=== PATIENT | female | born 1995 | race Caucasian/White ===

== ENCOUNTER → 2018-06-26 14:45 | Outpatient (CLI) | payer MEDICAID ==
[2018-06-26 16:11] LABS: BASOPHILS 0.3 % (0-2); HEMATOCRIT 33.2 % (36.0-48.0); HEMOGLOBIN 11.4 g/dL (12-16); IMMATURE GRANULOCYTES 0.3 % (0-5); LYMPHOCYTES 22.9 % (15-50); MCH 29.1 pg (26.0-34.0); MCHC 34.3 g/dL (31.0-37.0); MCV 84.7 fL (80.0-100.0); MEAN PLATELET VOLUME 9.5 fL (7.4-10.4); MONOCYTES 5.9 % (2-11); NEUTROPHILS 69.6 % (40-80); PLATELET COUNT 240 10x3/uL (130-400); RBC 3.92 10x6/uL (4.00-5.40); RDW 13.7 % (11.5-14.5); WBC 7.7 10x3/uL (4.8-10.8)
[2018-06-26 16:16] LABS: APPEARANCE CLEAR (CLEAR); BILIRUBIN NEGATIVE (NEGATIVE); COLOR STRAW (YELLOW); GLUCOSE 50 mg/dL (NEGATIVE); KETONE NEGATIVE (NEGATIVE); NITRITE NEGATIVE (NEGATIVE); PROTEIN NEGATIVE (NEGATIVE); SPECIFIC GRAVITY 1.005 (1.005-1.020); UROBILINOGEN NORMAL (NORMAL)
[2018-06-26 16:19] LABS: CREATININE - URINE 9.7 mg/dL (30-125)
[2018-06-26 16:21] LABS: PRO/CRE RATIO URINE 0.5 mg/g; PROTEIN - URINE 4.5 mg/dL (0.0-11.9)
[2018-06-26 16:23] LABS: UDS - AMPHET NEGATIVE QUAL (NEGATIVE); UDS - BARB NEGATIVE QUAL (NEGATIVE); UDS - BENZO NEGATIVE QUAL (NEGATIVE); UDS - COCAINE NEGATIVE QUAL (NEGATIVE); UDS - OPIATE NEGATIVE QUAL (NEGATIVE); UDS - PCP NEGATIVE QUAL (NEGATIVE); UDS - THC POSITIVE QUAL (NEGATIVE)
[2018-06-26 16:31] LABS: ALBUMIN 2.4 g/dL (3.4-5.0); ALKALINE PHOSPHATASE 295 U/L (46-116); ALT (SGPT) 15 U/L (10-68); BILIRUBIN - TOTAL 0.11 mg/dL (0.2-1.3); CALC OSMOLALITY 275 mosm/kg (275-300); CALCIUM 8.1 mg/dL (8.5-10.1); CARBON DIOXIDE 25.5 mmol/L (21.0-32.0); CHLORIDE - SERUM 106 mmol/L (98-107); CREATININE - SERUM 0.5 mg/dL (0.6-1.3); GLUCOSE 100 mg/dL (74-106); LDH 113 U/L (81-234); SODIUM 140 mmol/L (136-145); UREA NITROGEN 4 mg/dL (7-18); URIC ACID 3.8 mg/dL (2.6-7.2); eGFR NON AFRICAN AMERICAN > 90 mL/min (90-120)
[2018-06-26 16:34] LABS: HIV 1 & 2- RAPID SCREEN NEGATIVE (NEGATIVE)
== END | disposition home or self-care (01) ==
LOC: D.LDO 14:45
PROVIDERS: Obstetrics & Gynecology
DX: O26.899 Other specified pregnancy related conditions, unspecified trimester (principal); Z3A.00 Weeks of gestation of pregnancy not specified

== ENCOUNTER → 2018-07-03 19:21 | Outpatient (CLI) | payer MEDICAID | END | disposition home or self-care (01) | LOC: D.LDO 19:21 | PROVIDERS: ATTEND Obstetrics & Gynecology | DX: O36.5930 Maternal care for other known or suspected poor fetal growth, third trimester, not applicable or unspecified (principal); Z3A.36 36 weeks gestation of pregnancy ==

== ENCOUNTER 2018-07-19 00:47 | Inpatient (IN) | payer MEDICAID ==
[2018-07-19 01:49] LABS: APPEARANCE CLEAR (CLEAR); BACTERIA NONE SEEN /hpf (NONE SEEN); BILIRUBIN NEGATIVE (NEGATIVE); COLOR PINK (YELLOW); EPITHELIAL CELLS RARE /hpf (0-5); GLUCOSE NEGATIVE (NEGATIVE); HEMATOCRIT 35.5 % (36.0-48.0); HEMOGLOBIN 12.2 g/dL (12-16); KETONE NEGATIVE (NEGATIVE); MCH 28.9 pg (26.0-34.0); MCHC 34.4 g/dL (31.0-37.0); MCV 84.1 fL (80.0-100.0); MEAN PLATELET VOLUME 9.5 fL (7.4-10.4); NITRITE NEGATIVE (NEGATIVE); PROTEIN NEGATIVE (NEGATIVE); RBC 4.22 10x6/uL (4.00-5.40); RDW 13.9 % (11.5-14.5); RED CELLS - URINE >50 /hpf (0-5); SPECIFIC GRAVITY 1.015 (1.005-1.020); UROBILINOGEN NORMAL (NORMAL); WBC 9.8 10x3/uL (4.8-10.8)
[2018-07-19 01:52] LABS: UDS - AMPHET NEGATIVE QUAL (NEGATIVE); UDS - BARB NEGATIVE QUAL (NEGATIVE); UDS - BENZO NEGATIVE QUAL (NEGATIVE); UDS - COCAINE NEGATIVE QUAL (NEGATIVE); UDS - OPIATE NEGATIVE QUAL (NEGATIVE); UDS - PCP NEGATIVE QUAL (NEGATIVE); UDS - THC POSITIVE QUAL (NEGATIVE)
[2018-07-19 03:49] VITALS: BP 129/79; BMI 25.2
[2018-07-19 07:27] VITALS: BP 99/51
--- NOTE | 2018-07-19 07:35 | NUR ---
ENTERED ROOM FOR ASSESSMENT. PT ASLEEP. AWAKENED WHEN ASK QUESTIONS. DENIES PAIN OR DISCOMFORT. REG BREAKFAST BROUGHT TO ROOM. FUNDUS U2/FIRM. SCANT LOCHIA NOTED ON PAD. NO REQUESTS.
--- NOTE | 2018-07-19 08:18 | NUR ---
PT STATES IS CRAMPING WITH BREAST FEEDING AT THIS TIME.
--- NOTE | 2018-07-19 08:46 | NUR ---
UP TO BATHROOM TO VOID. VOIDED AND MARINA CARE DONE. PADS CHANGED. AMBULATORY TO ROOM 1278 WITH INFANT. TOLERATED WELL
--- NOTE | 2018-07-19 09:56 | NUR ---
UP AND ABOUT IN ROOM. DENIES NEEDS.
--- NOTE | 2018-07-19 10:18 | NUR ---
REQUESTING HALF AND HALF FOR COFFEE. LUNCH MENU COMPLETE.
--- NOTE | 2018-07-19 10:35 | NUR ---
PT REQUESTING TO GO SMOKE CIGARETTE- EXPLAINED THAT THIS IS A NO SMOKING CAMPUS.
--- NOTE | 2018-07-19 10:44 | NUR ---
Arpita Valentine 07/19/18 S: Patient states this is her 3rd baby. Patient denies wanting help with latching . She has been and denies questions or help with . States baby is sleeping at this time and she will try feeding shortly. Patient verbally agrees to contact nursery staff as needed for help with . O: Patient sitting up in bed holding sleeping . Congratulated on delivery and asked how can I help with . Asked if she needs any help with latching, sore nipples, or positions? Praised for and informed does take time, practice, and patience in the beginning. It is normal for to want to nurse every 2 hours in the day and 3-4 hours at night. Explained breastmilk composition, benefits of skin to skin, how to correctly hold infant for feeding by turning tummy to tummy, directly in front of the breast, nose opposite of nipple, and allow to self latch. Infant may not latch immediately and this is normal also. Asked if any pain when latching infant? Please contact nursery staff as needed for help with . A: Patient appears confident with due to no questions or concerns about . P: Continue to promote during hospital visit. Honorio Ellison, CLC
--- NOTE | 2018-07-19 11:37 | OP ---
PATIENT NAME: JAMEE RODGERS MEDICAL RECORD: [id number] :94 LOCATION:[id number] ADMISSION DATE:07/19/18 SURGEON: LUIS MARISCAL MD DATE OF OPERATION: 07/19/2018 Delivery Note PREDELIVERY DIAGNOSES: 1. Growth restriction at term. 2. Noncompliance. 3. Active labor. POSTDELIVERY DIAGNOSES: 1. Growth restriction at term. 2. Noncompliance. 3. Mother delivered at term. PROCEDURE: Vaginal delivery. ATTENDING: Luis Mariscal MD ANESTHETIC: None. FINDINGS: A viable male infant in PARMINDER presentation, nuchal cord times 1, Apgars are 9 and 9 with a weight of 2405 grams. Placenta spontaneous and intact. No laceration. ESTIMATED BLOOD LOSS: 300 cc. DISPOSITION: Mother and infant recovered in the room. PATHOLOGY: Placenta. TRANSINT:[id number] Voice Confirmation ID: [id number] DOCUMENT ID: [id number] LUIS MARISCAL MD at 1137 CC: [id number] DICTATION DATE: 07/19/18323 MARKETING FINANCE MANAGER: 07/19/18 0428 ADM IN [facility] [address] [place] [address]
--- NOTE | 2018-07-19 13:15 | NUR ---
PT CALLS OUT REQUESTING PAIN MED DUE TO INCREASE CRAMPING. EMAR CHECKED, THIS RN TO ROOM TO EXPLAIN THAT MED COULD NOT BE GIVEN AGAIN UNTIL 2:00PM. SHE STATES HER UNDERSTANDING AND DENIES ANY OTHER NEEDS.
--- NOTE | 2018-07-19 13:44 | NUR ---
pt ambulates off unit with visitors.
--- NOTE | 2018-07-19 14:06 | NUR ---
PT AMB BACK TO ROOM BY HERSELF
--- NOTE | 2018-07-19 14:15 | NUR ---
Call light answered, pt rates cramping at 5/10 and request pain med. Tordal given po as scanned to emar. she talking on cell phone at this time
--- NOTE | 2018-07-19 14:19 | NUR ---
pt amb off unit, she is alone at this time. Infant remains in nursery.
[2018-07-19 16:06] VITALS: BP 117/70
--- NOTE | 2018-07-19 16:10 | NUR ---
SOMNOLENT. ROLLS OVER WHEN TOUCHED, ASSISTED TO ROLL AND REQUESTED TO HOLD THERMOMETER UNDER TONGUE, THEN IMMEDIATELY FALLS BACK TO SLEEP. WAS PRONE. NOW LYING ON LEFT SIDE . NO SIGNS OF DISTRESS. RESP REG AND EVEN. SKIN WARM DRY AND PINK
--- NOTE | 2018-07-19 16:15 | NUR ---
GETS UP TO GO TO THE RESTROOM, REQUESTING STAY IN ROOM. INFORMED THAT SINCE SHE IS BY HERSELF AND SO DIFFICULT TO WAKEN, THAT IT IS NOT BE SAFE TO LEAVE INFANT IN ROOM AND THAT WHEN SHE IS MORE ALERT, TO CALL NURSE. INFANT RETURNED TO [facility] IN [facility]CR[facility].
--- NOTE | 2018-07-19 17:15 | NUR ---
INFANT. SITTING CROSS LEGGED IN BED. 3 VISITORS AT BEDSIDE. PROPER LATCH/SUCK/SWALLOW AND POSITIONING NOTED WHILE MOTHER . ALERT AND ORIENTED. SKIN WARM DRY AND PINK.
--- NOTE | 2018-07-19 17:30 | NUR ---
REMAINS STABLE WITH NO SIGNS OF DISTRESS. BONDING WITH .
--- NOTE | 2018-07-19 17:45 | NUR ---
VISITING WITH VISITORS SHE BREASTFEEDS INFANT. REMAINS STABLE WITH NO SIGNS OF DISTRESS. ALERT AND ORIENTED. SKIN WARM DRY AND PINK
[2018-07-19 19:13] VITALS: BP 114/70
--- NOTE | 2018-07-19 19:13 | NUR ---
PT REC'D UP AT THE BEDSIDE AT THIS TIME. FAMILY VISITING. SALINE LOCKS X2 TO RT AND LEFT FOREARM. SITE CLEAR. LUNGS CLEAR. BS+. FUNDUS FIRM AND MIDLINE WITH SCANT LOCHIA NOTED. FUNDUS AT U/3. PT VOIDING AND TOLERATING REGULAR DIET AT THIS TIME. STATES THAT PAIN IS A 2. PT WITHOUT NICOTINS PATCHA AT THIS TIME. STATEST THAT IT WAS PLACED TO THE RT UPPER ARM AND IT CAME OFF. SHE STATES "THEY NEVER STICK TO ME. THAT'S WHY I BEEN GOING TO SMOKE.' VSS. NO ACUTE DISTRESS NOTED. CALL LIGHT IN PT REACH. Alva REYES RN
--- NOTE | 2018-07-19 20:07 | NUR ---
PT GIVEN SCHEDULED DOSE OF TORADOL FOR PAIN LEVEL OF 4 FOR CRAMOING. WILL CONTINUE TO MONITOR. PT GIVEN WATER AND MILK AT THIS TIME. Alva REYES RN
--- NOTE | 2018-07-19 20:31 | NUR ---
PT OFF THE UNIT AT THIS TIME. Alva REYES RN
--- NOTE | 2018-07-19 21:30 | NUR ---
PT REMAINS OFF THE UNIT AT THIS TIME. Alva REYES RN
--- NOTE | 2018-07-19 21:55 | NUR ---
PT AND S/O RETURNED TO UNIT AT THIS TIME. NO DISTRESS NOTED. Alva REYES RN
--- NOTE | 2018-07-19 22:50 | NUR ---
PT WITH FAMILY AT THE BEDSIDE. NO NEEDS VERBALIZED AT THIS TIME. L PLEV, RN
--- NOTE | 2018-07-20 00:35 | NUR ---
PT REC'D IN BED WITH ASLEEP. DENIES NEEDS AT THIS TIME. RETURNED TO NURSERY FOR FEEDING AND DIAPER CHANGE. PT VERBALIZES NO OTHER NEEDS AT THIS TIME. CALL LIGHT IN PT REACH. Alva REYES RN
--- NOTE | 2018-07-20 02:15 | NUR ---
PT REC'D ASLEEP AT THIS TIME. NO DISTRESS NOTED AT THIS TIME. Alva REYES RN
--- NOTE | 2018-07-20 03:29 | NUR ---
PT MEDICATED WITH TORADOL AT THIS TIME FOR PAIN. Alva REYES RN
--- NOTE | 2018-07-20 03:36 | NUR ---
PT LEFT THE UNIT AT THIS TIME. Alva REYES RN
--- NOTE | 2018-07-20 04:30 | NUR ---
PT RETURNS AMBULATORY TO UNIT IN STABLE CONDITION. Alva REYES,RN
--- NOTE | 2018-07-20 05:30 | NUR ---
PT ASLEEP AT THIS TIME. NO DISTRESS NOTED AT THIS TIME. Alva REYES RN
[2018-07-20 06:04] LABS: BASOPHILS 0.6 % (0-2); EOSINOPHILS 3.2 % (0-7); HEMATOCRIT 33.9 % (36.0-48.0); HEMOGLOBIN 11.5 g/dL (12-16); IMMATURE GRANULOCYTES 0.4 % (0-5); LYMPHOCYTES 38.6 % (15-50); MCH 28.8 pg (26.0-34.0); MCHC 33.9 g/dL (31.0-37.0); MCV 84.8 fL (80.0-100.0); MEAN PLATELET VOLUME 9.4 fL (7.4-10.4); MONOCYTES 9.7 % (2-11); NEUTROPHILS 47.5 % (40-80); PLATELET COUNT 230 10x3/uL (130-400)
[2018-07-20 06:43] LABS: WBC 7.2 10x3/uL (4.8-10.8)
[2018-07-20 07:24] LABS: RAPID PLASMA REAGIN Non Reactive (Non Reactive)
--- NOTE | 2018-07-20 07:45 | NUR ---
PT ATTEMPTING TO LEAVE UNIT, STOPPED AND ASK TO PLEASE WAIT SO THAT VITAL SIGNS AND ASSESSMENT COULD BE COMPLETED. SHE IS WALKING BACK TO HER RO0M SHE SEES DR WHITAKER AND ASK HIM ABOUT COUGH MED. ORDERS THAN RECEIVED FOR PHENERGAN DM.
--- NOTE | 2018-07-20 07:46 | NUR ---
DR WHITAKER IN ROOM TO SEE PT.
[2018-07-20 08:03] VITALS: BP 120/75
--- NOTE | 2018-07-20 08:12 | NUR ---
AM ASSESSMENT COMPLETED. VITAL SIGNS CHARTED ON FLOWSHEET. PT RATES PAIN AT 4/10 AND UNDERSTANDS THAT TORDAL CAN BE GIVEN UNTIL 0900. FUNDUS FIRM WITH SCANT BLEEDING TO MARINA PAD. BROUGHT TO ROOM VIA CRIB BY NURSERY NURSE. SIDE RAILS UP X 2 WITH CALL LIGHT IN REACH.
--- NOTE | 2018-07-20 09:00 | NUR ---
Meds given as charted on emar. Saline lock removed from right forearm and left wrist with cath intact. Infant taken to nursery via crib with nursery nurse for pedi visit.
--- NOTE | 2018-07-20 12:08 | NUR ---
CASE MANAGEMENT ON UNIT WELL PEDI TO VISIT WITH PT, SHE IS OUT OF ROOM AND OFF UNIT AT THIS TIME.
--- NOTE | 2018-07-20 12:45 | NUR ---
PT BACK TO ROOM, CASE MANAGEMENT NOTIFIED AND COMES IN TO SPEAK WITH PT.
--- NOTE | 2018-07-20 15:27 | NUR ---
PT RINGS CALL LIGHT REQUESTING PAIN MEDICATION AND COUGH MEDICATION
--- NOTE | 2018-07-20 15:37 | NUR ---
THIS RN TO BEDSIDE TO INFORM PT THAT THIS RN IS AWAITING DELIVERY OF HER COUGH MEDICATION FROM PHARMACY BEFORE AND ONCE IT IS DELIVERED, THIS RN WILL BE TO ROOM TO ADMINISTER IT.
--- NOTE | 2018-07-20 16:00 | NUR ---
PT PROVIDED WITH ROOMING IN INFO AND TALKING WITH FAMILY ABOUT WHAT TO DO.
--- NOTE | 2018-07-20 19:30 | NUR ---
REPORT RECEIVED FROM ANTONETTE NOWAK. NO PROBLEMS REPORTED
--- NOTE | 2018-07-20 19:50 | NUR ---
ASSESSMENT COMPLETED, SEE FLOWSHEET. VSS. STATED NO PAIN AT THIS TIME. FUNDUS FIRM, PT STATED BLEEDING IS SCANT. CL IN REACH. DENIES ANY NEEDS AT THIS TIME. WILL MONITOR
[2018-07-20 20:06] VITALS: BP 124/62
--- NOTE | 2018-07-20 21:30 | NUR ---
PT IN RESTROOM UPON ENTERING ROOM. REQUESTING BREAST PUMP. PUMP TAKEN TO ROOM. SHOWN ON USE AND LOAN AGREEMENT SIGNED.
--- NOTE | 2018-07-20 22:30 | NUR ---
PT UP WALKING IN ROOM. DENIES ANY NEEDS AT THIS TIME. WILL MONITOR
--- NOTE | 2018-07-20 23:32 | NUR ---
REQUESTING PAIN MED AND COUGH MED. GIVEN PER ORDER, SEE EMAR. DENIES ANY OTHER NEEDS. CL IN REACH.
--- NOTE | 2018-07-21 01:08 | NUR ---
SITTING UP IN BED. HOLDING AT THIS TIME. DENIES NEEDS. CL IN REACH
--- NOTE | 2018-07-21 01:51 | NUR ---
PT IN BED, RESTING WITH EYES CLOSED. NO DISTRESS NOTED. SR UP X2. CL IN REACH
--- NOTE | 2018-07-21 02:38 | NUR ---
LAYING IN BED, RESTING WITH EYES CLOSED. NO DISTRESS NOTED. CL IN REACH
--- NOTE | 2018-07-21 03:30 | NUR ---
WATER TAKEN INTO PT. DENIES ANY OTHER NEEDS. CL IN REACH, WILL MONITOR
--- NOTE | 2018-07-21 04:25 | NUR ---
PT IN BED RESTING SUPINE WITH EYES CLOSED. AT BEDSIDE IN OPEN CRIB. CL IN REACH. WILL MONITOR
--- NOTE | 2018-07-21 05:25 | NUR ---
UP TO BATHROOM. STATED BLEEDING IS STILL SCANT. DENIES NEEDS. WILL MONITOR
--- NOTE | 2018-07-21 05:57 | NUR ---
MOM REQUESTING TO WALK AROUND FOR A FEW MINUTES. RETURNED TO N
--- NOTE | 2018-07-21 06:34 | NUR ---
MOM BACK IN ROOM. INFANT RETURNED TO ROOM VIA OPEN CRIB. DENIES NEEDS
--- NOTE | 2018-07-21 07:30 | NUR ---
THIS RN TO BEDSIDE FOR INTRODUCTIONS AND POC FOR TODAY. PT CURRENTLY SITTING ON BEDSIDE USING A BREAST PUMP. PT PLANS TO EAT BREAKFAST AND SHIFT ASSESSMENT TO BE COMPLETED AFTER SHE HAS FINISHED. PAIN AND NEEDS ASSESSED. PT HAS NO C/O PAIN AT PRESENT AND ONLY REQUEST COUGH MEDICATION AT THIS TIME.
--- NOTE | 2018-07-21 07:55 | NUR ---
to bedside to administer ordered cough medication. see emar. while at bedside, pt now request her toradol for c/o cramping after pumping.
--- NOTE | 2018-07-21 08:01 | NUR ---
toradol 10mg po given. see emar. pt just now beginning to eat breakfast. will return for assessment.
--- NOTE | 2018-07-21 08:04 | NUR ---
Arpita Valentine 07/21/18 S: Patient states things are going good with . She has been pumping when not latching due to her breast filling up. States she tried feeding this morning but he won't wake up to feed. States she started pumping yesterday and has been given the pumped milk. Denies pain with pumping or latching infant. Feels like is going great. Patient does get WI and verbalized she would like make a WI appointment. Patient spoke with [facility] staff by phone and appointment was made for patient and infant. O: Patient sitting up in bed eating breakfast and in crib sleep. Asked how are things going with . Encouraged patient to continue to latch for every feeding, this will help with establishing her milk supply. Observed pump next to bed and asked reason for pumping. Validated patient reasons for wanting to pump. Explained how to help with engorgement by applying ice packs to her breast for 2-3 minutes and if needed a warm towel for 2-3 minutes. You may pump both breast until your desired comfort level is reached. I do encourage latching the baby to the breast for every feeding, this will help prevent engorgement also. Asked if sore nipples or pain with pumping? Please ask for help with or pumping as needed. Always offer the breast first, if infant doesn't latch to both breast for feeding, you may pump the other breast. You may also pump both breast if doesn't latch at all and provide pumped milk to infant. Speak with nursery staff on desired amount needs when providing breastmilk in bottle. Ask if any questions or concerns? Asked if patient gets WI and if she would like to make a WI appointment? A: Patient has included pumping into her schedule as of yesterday due to engorgement and if infant won't latch. is provided pumped breastmilk. P: Continue to promote during hospital visit. Honorio Ellison, CLC
--- NOTE | 2018-07-21 08:35 | NUR ---
PT AMBULATORY OFF UNIT AT THIS TIME.
--- NOTE | 2018-07-21 09:10 | NUR ---
PT RETURNS TO ROOM AT THIS TIME.
[2018-07-21 09:17] VITALS: BP 120/63
--- NOTE | 2018-07-21 09:25 | NUR ---
THIS RN TO BEDSIDE FOR SHIFT ASSESSMENT. SEE FLOWSHEET. DISCHARGE TEACHING STARTED AT THIS TIME. PT DENIES NEEDS. RATES PAIN 03/18/
--- NOTE | 2018-07-21 10:15 | NUR ---
THIS RN TO BEDSIDE FOR COMPLETE DISCHARGE TEACHING TO INCLUDE PP WARNING SIGNS,PP DEPRESSION, VAG DELIVERY DC, PRESCRIPTION FOR PHENERGAN W/CODIEDE PROVIDED W/TEACHING.SMOKING CESSATION HELP INFO PROVIDED. QUESTIONS ANSWERED TO PT'S SATISFACTION. PT VEBALZIES UNDERSTANDING AND AGREEABLE. FOLLOW UP MADE AND REMINDER CARD PROVIDED.PT AWAITING DISCHARGE FROM [facility] ON INFANT.
--- NOTE | 2018-07-21 11:20 | NUR ---
PT DISCHARGED TO ROOMING IN TO ROOM 1218 AT THIS TIME. PT ASSISTED WITH TRANSPORTING PERSONAL BELONGINGS TO ROOM 1218. PT IMMEDIATELY OFF UNIT TO OUTSIDE. ROOMING INFO TO NURSERY.
--- NOTE | 2018-07-22 08:06 | DS ---
PATIENT:JAMEE RODGERS :89 MEDICAL RECORD: [id number] DISCHARGE SUMMARY ADMISSION DATE: 07/19/18 DISCHARGE DATE: 07/21/18 DATE OF ADMISSION: 07/19/2018. DATE OF DISCHARGE: 07/21/2018. ADMISSION DIAGNOSES: 1. Growth restriction. 2. Active labor. DISCHARGE DIAGNOSES: 1. Growth restriction. 2. Mother delivered at term. PROCEDURE: Vaginal delivery. ATTENDING PHYSICIAN: Adalgisa Whitaker MD REASON FOR HOSPITALIZATION: See the H&P in the chart. SUMMARY OF HOSPITALIZATION: The patient was admitted and delivered. The course was unremarkable. The patient has intermittent nausea and Phenergan will be written for the patient. The patient has been asked to follow up in 6 weeks. Standard precautions have been reviewed. TRANSINT:[id number] Voice Confirmation ID: [id number] DOCUMENT ID: [id number] ADALGISA WHITAKER MD at 0806 CC: [id number] DICTATION DATE: 07/21/18 0703 SET UP AND LAY OUT INSPECTOR: 07/22/18 0446 DIS IN 07/21/18 [facility] [address] [place] [address]
[2018-07-24 07:20] LABS: UDSC - AMPHET Negative ng/mL (Cutoff=1000); UDSC - BARB Negative ng/mL (Cutoff=300); UDSC - BENZO Negative ng/mL (Cutoff=300); UDSC - COC Negative ng/mL (Cutoff=300); UDSC - METH Negative ng/mL (Cutoff=300); UDSC - OPIATES Negative ng/mL (Cutoff=300); UDSC - PCP Negative ng/mL (Cutoff=25); UDSC - PROPOXY Negative ng/mL (Cutoff=300); UDSC - THC Positive (Cutoff=50)
== END 2018-07-21 11:30 | disposition home or self-care (01) | DRG 807 ==
LOC: D.LDO 00:47 → D.LD 01:00 → D.LDO 01:01 → D.LD 01:02
PROVIDERS: ADMIT Obstetrics & Gynecology; ATTEND Obstetrics & Gynecology
PROC: 10E0XZZ Delivery of Products of Conception, External Approach (ICD-10-PCS; principal; 2018-07-19)
DX: O36.5930 Maternal care for other known or suspected poor fetal growth, third trimester, not applicable or unspecified (principal); Z37.0 Single live birth; Z3A.39 39 weeks gestation of pregnancy; O99.334 Smoking (tobacco) complicating childbirth; O69.81X0 Labor and delivery complicated by cord around neck, without compression, not applicable or unspecified